=== PATIENT | male | born 1990 | race African-American/Black ===

== ENCOUNTER 2017-12-22 17:41 | Emergency (ER) | payer MEDICAID ==
[~2017-12-22] VITALS: Ht 167.6 cm; Wt 68.0 kg
[2017-12-22 20:22] VITALS: BP 129/76
== END 2017-12-22 20:22 | disposition home or self-care (01) ==
LOC: ER 17:41
DX: S63.614A Unspecified sprain of right ring finger, initial encounter (principal); F12.10 Cannabis abuse, uncomplicated; W22.01XA Walked into wall, initial encounter; Y93.89 Activity, other specified; Y92.018 Other place in single-family (private) house as the place of occurrence of the external cause
CPT/HCPCS: 29130; 73130; 99284